=== PATIENT | female | born 1990 | race American Indian/Alaskan Native ===

== ENCOUNTER 2017-10-13 13:59 | Emergency (ER) | payer OTHER ==
[2017-10-13 15:48] LABS: Bacteria,Urine 4+ /HPF (Negative); Bilirubin,Urine NEG (Negative); Blood,Urine MOD (Negative); Color,Urine Yellow (Yellow); Mucus,Urine FEW /HPF; Renal Epithelial Cells,Urine 1 /LPF; Urobilinogen,Urine < 2.0 mg/dL (<2.0)
[2017-10-13 15:49] LABS: WBC,Urine > 182.0 /HPF (0.0-6.0)
[2017-10-13] MEDS: TYLENOL PO ONE (20:54)
[2017-10-13] MEDS: LEVAQUIN PO ONE (21:01)
--- NOTE | 2017-10-13 21:10 | Emergency Department Report ---
HPI - General Chief Complaint: Urogenital-Female Time Seen by Provider: 10/13/17 20:22 - HPI HPI: 27-year-old female presents to the emergency department with a complaint of concern for a urinary tract infection. Patient says that she has very cloudy urine and had a catheter in place from a vaginal delivery done on October 02. She says that she does not have any significant dysuria but sometimes it will feel like there is a slight twinge or discomfort when she urinates. She denies any vaginal discharge. The patient did have a fever of 101 last night. She did not take anything for her symptoms prior presentation. The patient is on Synthroid for hypothyroidism and was recently started on labetalol for some hypertension. She does to [facility] and they started her on the labetalol which she took this morning and will take again close to midnight this evening. No sick contacts at home. ED Past Medical Hx - Past Medical History Previous Medical History?: Yes Hx Hypertension: No Hx Congestive Heart Failure: No Hx Diabetes: No Hx Deep Vein Thrombosis: No Hx Renal Disease: No Hx Sickle Cell Disease: No Hx Seizures: No Hx Asthma: No Hx COPD: No Hx HIV: No Additional medical history: vaginal delivery x 2 - Surgical History Past Surgical History?: Yes Additional Surgical History: Umbilical hernia repair - Social History Smoking Status: Never Smoker Substance Use Type: Alcohol - Medications Home Medications: Home Medications Medication Instructions Recorded Confirmed Last Taken Type Aspirin [Lo-Dose Aspirin EC] 81 mg PO QDAY 10/01/17 10/01/17 09/30/17 21:00 History Levothyroxine [Synthroid] 100 mcg PO QAM 10/01/17 10/01/17 09/30/17 06:00 History Vit Calc,Iron,Folic 1 tab PO QDAY 10/01/17 10/01/17 09/30/17 21:00 History [ Vitamins] Ibuprofen [Motrin 800 MG tab] 800 mg PO Q8HR PRN #30 tablet 10/02/17 Unknown Rx Lidocain2.5%/Prilocai2.5% [Emla] 5 gm TP ONCE PRN #1 tube 10/02/17 Unknown Rx Labetalol [Normodyne TAB] 200 mg PO BID #60 tablet 10/04/17 Unknown Rx Cephalexin [Keflex] 1,000 mg PO Q12HR #20 cap 10/14/17 Unknown Rx ED Review of Systems ROS: Stated complaint: UTI WITH FEVER Other details as noted in HPI Comment: All other systems reviewed and negative Constitutional: fever. denies: malaise Eyes: denies: eye pain, eye discharge, vision change ENT: denies: ear pain, throat pain Respiratory: denies: cough, shortness of breath, wheezing Cardiovascular: denies: chest pain, palpitations Gastrointestinal: denies: abdominal pain, nausea, diarrhea Genitourinary: dysuria. denies: discharge Musculoskeletal: denies: back pain, joint swelling, arthralgia Skin: denies: rash, lesions Neurological: denies: headache, weakness, paresthesias Physical Exam - Physical Exam Vital Signs: Vital Signs 10/13/17 10/13/17 14:36 20:29 Temperature 98.8 F 102.3 F H Pulse Rate 105 H 108 H Respiratory 18 18 Rate Blood Pressure 168/109 Blood Pressure 169/111 [Left] O2 Sat by Pulse 97 100 Oximetry Physical Exam: GENERAL: The patient is well-developed well-nourished. HENT: Normocephalic. Atraumatic. Patient has moist mucous membranes. EYES: Extraocular motions are intact. NECK: Supple. Trachea is midline. CHEST/LUNGS: Clear to auscultation. There is no respiratory distress noted. HEART/CARDIOVASCULAR: Regular. There is mild tachycardia. There is no murmur. ABDOMEN: Abdomen is soft, nontender. Patient has normal bowel sounds. There is no abdominal distention. SKIN: Skin is warm and dry. NEURO: The patient is awake, alert, and oriented. The patient is cooperative. The patient has no focal neurologic deficits. The patient has normal speech. MUSCULOSKELETAL: There is no tenderness or deformity. There is no limitation range of motion. There is no evidence of acute injury. ED Course Vital Signs 10/13/17 10/13/17 14:36 20:29 Temperature 98.8 F 102.3 F H Pulse Rate 105 H 108 H Respiratory 18 18 Rate Blood Pressure 168/109 Blood Pressure 169/111 [Left] O2 Sat by Pulse 97 100 Oximetry ED Medical Decision Making - Lab Data Result diagrams: 10/13/17 21:06 10/13/17 21:06 - Medical Decision Making Patient presented with concern for urinary tract infection and a recent fever. She did not have a fever through triage but upon reevaluation it was about 102 F. Patient left a urinalysis at first that does show a urinary tract infection with greater than 180 white blood cells in the urine. Because of the fever and UTI, I obtained some blood work but the patient did not have any signs of leukocytosis or any renal insufficiency. She was given some Tylenol and oral Levaquin. However at first, the patient's fever did not go down and the patient developed some more tachycardia. The patient is also due for her beta jai and this may be part of the issue. She allowed me to place an IV and I gave her some IV fluid, a small amount of labetalol and prior to this the patient also got ibuprofen. About one hour later, the patient's fever had resolved, tachycardia improved if not resolved and the patient appears safe for discharge home. She will go home on antibiotics for the urinary tract infection. She will continue with her labetalol. She will use Tylenol and ibuprofen as needed for fever. She will return to the ER with any worsening of her symptoms or any acute distress. - Differential Diagnosis UTI, , sepsis, BV Critical Care Time: No Critical care attestation.: If time is entered above; I have spent that time in minutes in the direct care of this critically ill patient, excluding procedure time. ED Disposition Clinical Impression: Fever Qualifiers: Fever type: unspecified Qualified Code(s): R50.9 - Fever, unspecified UTI (urinary tract infection) Qualifiers: Urinary tract infection type: acute cystitis Hematuria presence: with hematuria Qualified Code(s): N30.01 - Acute cystitis with hematuria Hypertension Qualifiers: Hypertension type: essential hypertension Qualified Code(s): I10 - Essential ( primary) hypertension Disposition: DC- TO HOME OR SELFCARE Is pt being admited?: No Condition: Stable Instructions: Fever in Adults (ED), Hypertension (ED) Additional Instructions: Please follow-up with your primary care physician. Continue taking your blood pressure medications. Take the antibiotics as prescribed. You can take Tylenol every 4 hours and ibuprofen every 6 hours, using weight-based dosing, as needed for fever or discomfort. Return to the emergency Department with any worsening of your symptoms or any acute distress. Try and stay with foods that are high in salt and caffeinated products to help with her blood pressure. Keep a blood pressure log. Prescriptions: Cephalexin [Keflex] 1,000 mg PO Q12HR #20 cap Referrals: PRIMARY CARE, [Primary Care Provider] - 3-5 Days Time of Disposition: 00:17
[2017-10-13 21:28] LABS: Basophils % (Auto) 0.4 % (0.0-1.8); Eosinophils % (Auto) 0.1 % (0.0-4.3); Hematocrit 34.3 % (30.3-42.9); Hemoglobin 11.1 gm/dl (10.1-14.3); Lymphocytes # (Auto) 1.9 K/mm3 (1.2-5.4); Lymphocytes % (Auto) 20.1 % (13.4-35.0); Mean Corpuscular HGB Conc 32 % (30-34); Mean Corpuscular Hemoglobin 28 pg (28-32); Mean Corpuscular Volume 86 fl (79-97); Monocytes # (Auto) 0.7 K/mm3 (0.0-0.8); Monocytes % (Auto) 7.8 % (0.0-7.3); Platelet Count 454 K/mm3 (140-440); Red Blood Count 3.99 M/mm3 (3.65-5.03)
[2017-10-13 21:58] LABS: BUN/Creatinine Ratio 6; Blood Urea Nitrogen 5 mg/dL (7-17); Calcium 9.6 mg/dL (8.4-10.2); Hemolysis Index 0
[2017-10-13] MEDS: MOTRIN PO ONE (22:30)
[2017-10-13] MEDS: NORMODYNE IV ONE (23:28)
[2017-10-13] MEDS: NACL 0.9% 1000 ML 1,000 ML IV ONE (23:28)
[2017-10-14 00:37] VITALS: BP 149/97
== END 2017-10-14 00:52 | disposition home or self-care (01) ==
LOC: ED 13:59
DX: N30.01 Acute cystitis with hematuria (principal); I10 Essential (primary) hypertension
CPT/HCPCS: 36415; 80048; 81001; 85025; 96374; 99283; J7030